=== PATIENT | male | born 1935 | race Caucasian/White ===

== ENCOUNTER 2018-09-12 12:27 | Emergency (ER) | payer MEDICARE, OTHER ==
[2018-09-12 12:51] VITALS: BP 157/101
--- NOTE | 2018-09-12 13:21 | EDM.PDOC ---
ED HPI GENERAL MEDICAL PROBLEM - General Chief Complaint: Bite:Animal, Insect Stated Complaint: BITE ON LEFT LEG SWEELING Time Seen by Provider: 09/12/18 13:11 Source of Information: Reports: Patient, RN Notes Reviewed History Limitations: Reports: No Limitations - History of Present Illness INITIAL COMMENTS - FREE TEXT/NARRATIVE: 82-year-old gentleman presents emergency department today with a wound on his left leg with some rash located around this wound he is not sure if he was bit by something in [place] or if he was bit by something and [place] when he was out fishing no other symptoms at this time - Related Data Allergies Allergy/AdvReac Type Severity Reaction Status Date / Time No Known Allergies Allergy Verified 09/12/18 13:01 Home Meds: Home Meds Aspirin [Vj Chewable Aspirin] 81 mg PO DAILY 09/13/14 [History] Tocilizumab [Actemra] 300 mg IV ASDIRECTED 09/13/14 [History] atorvaSTATin [Lipitor] 20 mg PO DAILY 09/13/14 [History] Past Medical History Cardiovascular History: Reports: High Cholesterol Musculoskeletal History: Reports: Osteoarthritis - Past Surgical History Cardiovascular Surgical History: Reports: Valve Replacement Other Cardiovascular Surgeries/Procedures: aortic Social & Family History - Tobacco Use Smoking Status *Q: Never Smoker - Caffeine Use Caffeine Use: Reports: None - Recreational Drug Use Recreational Drug Use: No ED ROS GENERAL - Review of Systems Review Of Systems: See Below Constitutional: Reports: No Symptoms Skin: Reports: Rash, Wound ED EXAM, ANIMAL BITE - Physical Exam Exam: See Below Text/Narrative:: examination of integument systems left thigh he does have an ulcer about the size of the dining it appears to be excoriated there is clear fluid draining from this redness around this is approximately 1 cm however there is faint central clearing concern for erythema migrans Exam Limited By: No Limitations General Appearance: Alert, WD/WN, No Apparent Distress Course - Vital Signs Last Recorded V/S: Last Vital Signs Temp 96.6 F 09/12/18 12:58 Pulse 69 09/12/18 12:58 Resp 17 09/12/18 12:58 BP 157/101 H 09/12/18 12:58 Pulse Ox 98 09/12/18 12:58 Departure - Departure Time of Disposition: 13:20 Disposition: Home, Self-Care 01 Condition: Fair Clinical Impression: Insect bite - wound - Discharge Information Referrals: PCP,None [Primary Care Provider] - Additional Instructions: Take full course of antibiotics, Please followup with your primary care provider in 5-7 days if not better, please call return to the emergency department with worsening of symptoms. - Assessment/Plan Plan: Assessment Acuity = acute Site and laterality = possible erythema migrans Etiology = unclear etiology Manifestations = rash Location of injury = Home Lab values = none Plan Because he lives in the [facility] elected to treat empirically doxycycline 100 mg by mouth twice a day 21 days follow-up primary care 5-7 days no improvement This note was dictated using [employer] voice recognition software please call with any questions on syntax or grammar.
== END 2018-09-12 13:31 | disposition home or self-care (01) ==
LOC: JP.ED 12:27
DX: S70.362A Insect bite (nonvenomous), left thigh, initial encounter (principal); M19.90 Unspecified osteoarthritis, unspecified site; Z79.82 Long term (current) use of aspirin; W57.XXXA Bitten or stung by nonvenomous insect and other nonvenomous arthropods, initial encounter
CPT/HCPCS: 99282